=== PATIENT | male | born 1980 | race African-American/Black ===

== ENCOUNTER 2018-07-07 15:55 | Emergency (ER) | payer MEDICAID ==
[~2018-07-07] VITALS: Ht 172.7 cm; Wt 59.0 kg
[2018-07-07] MEDS ORDERED: LORazepam 1mg tab ORAL ONE (16:00)
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
[2018-07-07 16:03] VITALS: BP 128/80
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
--- NOTE | 2018-07-07 17:13 | NUR ---
ED Nurse Note: PT REQUESTED FOOD AND STATES THAT HE IS HUNGRY AND NEED TO EAT NOW. EDUCATED PT THAT HE HAS TO WAIT TILL THE PROCEDURE DONE AND SANDWICH CAN BE PROVIDED AFTER. PT STILL REQUESTED FOOD. NOTIFIED ERMD. PER ERMD, HOLD ANY FOOD UNTIL THE PROCEDURE. EDUCATED PT ONE MORE TIME. NEED REINFORCEMENT.
--- NOTE | 2018-07-07 17:23 | NUR ---
ED Nurse Note: Dr. Fiore AT THE BEDSIDE
[2018-07-07] MEDS ORDERED: Bacitracin Oint UD TOPIC ONE ×2 (17:53→18:00)
--- NOTE | 2018-07-07 17:55 | NUR ---
ED Nurse Note: Dr. Fiore REQUESTED 4 BACITRICINS, GIVEN TO DR. FIORE.
--- NOTE | 2018-07-07 19:06 | NUR ---
ED Nurse Note: Patient has been requesting food for quite some time. Hooked patient up to monitor, verified with ERMD that patient was cleared to eat. Patient vital signs are stable, patient is resting, eating and waiting for plastic surgeon.
--- NOTE | 2018-07-07 19:06 | NUR ---
HAND-OFF: Report given to MONCHO Jacques. No s/s of distress. Waiting for Dr. Fiore who is in another pt's room in ER at this time.
[2018-07-07] MEDS ORDERED: Lidocaine 1% 10mg/ml/EPI 0.01mg/ml 20ml INJ ONE (19:45)
[2018-07-07] MEDS ORDERED: Lidocaine 2% 20mg/ml/EPI 0.01mg/ml 20ml ONE (19:46)
--- NOTE | 2018-07-07 20:29 | NUR ---
ED Nurse Note: Patient still undergoing to suture placement.
[2018-07-07] MEDS ORDERED: Lidocaine 2% 20mg/ml/Epi 0.005mg/ml 20ml vial INJ ONE (20:30)
--- NOTE | 2018-07-07 20:44 | NUR ---
ED Nurse Note: xylo 2% used by Dr for repair. Uanble to scan.
[2018-07-07 20:48] VITALS: BP 128/80
--- NOTE | 2018-07-07 20:48 | NUR ---
ED Nurse Note: Patient cleared for discharge per ERMD, no s/s ogf acute distress or bleeding. Wound edges were well opposed at laceration sites. PAtient ID band removed, Patient IV removed. Patient escorted to the discharge desk.
--- NOTE | 2018-07-09 22:45 | Procedure Note ---
DATE OF PROCEDURE: 07/07/2018 PREOPERATIVE DIAGNOSIS: Right periorbital lacerations x2 POSTOPERATIVE DIAGNOSIS: Right periorbital lacerations x2 PROCEDURE PERFORMED: Irrigation and closure of right periorbital lacerations (5 cm & 2 cm). SURGEON: Joaquin Fiore M.D. FINDINGS: The patient had a 5 cm laceration over the right eye, which extended from just medial to the eponychial fold up toward the glabella and then traversed below the right eye. A second obliquely-oriented laceration measuring 2 cm was located inferior lateral to the eye over the malar eminence. COMPLICATIONS: None. ANESTHESIA: A 1% lidocaine with epinephrine. OPERATIVE PROCEDURE: The laceration site above the right eye and over the malar eminence were injected with 1% lidocaine with epinephrine. After allowing adequate time for anesthesia, both laceration sites were thoroughly irrigated with saline. Following this, the laceration sites were closed. Initially, the laceration over the malar eminence was closed. 5-0 Vicryl deep buried interrupted sutures were used to reapproximate the deeper tissues. Next, 6-0 nylon simple interrupted sutures were placed along the length of the laceration site to reapproximate the skin edges. Next, the laceration located superior to the right globe was closed in a similar fashion with 6-0 nylon simple interrupted sutures. The patient tolerated the procedure well. There were no issues or complications. The patient will have sutures removed after 6 days. Joaquin Fiore M.D. DR: CHIQUIS JOB#: [id number] CC: ENOC
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
== END 2018-07-07 20:48 | disposition home or self-care (01) ==
LOC: EDBD 15:55 → EMR 16:40
DX: S01.111A Laceration without foreign body of right eyelid and periocular area, initial encounter (principal); S01.81XA Laceration without foreign body of other part of head, initial encounter; V23.4XXA Motorcycle driver injured in collision with car, pick-up truck or van in traffic accident, initial encounter; Y92.410 Unspecified street and highway as the place of occurrence of the external cause
CPT/HCPCS: 12014; 99283; Z7502